=== PATIENT | male | born 1985 | race Hispanic/Latino ===

== ENCOUNTER 2022-07-30 15:38 | Inpatient (IN) | payer OTHER ==
[~2022-07-30] VITALS: Ht 177.8 cm; Wt 68.0 kg
[2022-07-30 16:22] LABS: BASOPHILS % (AUTO) 0.2 % (0.0-5.0); HEMATOCRIT 54.8 % (42-54); LYMPHOCYTES % (AUTO) 8.1 % (21.0-51.0); MEAN CORPUSCULAR HEMOGLOBIN 30.8 pg (27.0-33.0); MEAN CORPUSCULAR HGB CONC 34.9 g/dL (32.0-36.0); MEAN CORPUSCULAR VOLUME 88.2 fL (79-99); MONOCYTES % (AUTO) 9.2 % (3.0-13.0); PLATELET COUNT (AUTO) 280 K/uL (130-400); RED BLOOD CELL COUNT(AUTO) 6.21 MIL/uL (4.50-6.20); RED CELL DISTRIBUTION WIDTH 14.2 % (11.0-15.5); WHITE BLOOD COUNT (AUTO) 20.1 K/uL (4.8-10.8)
[2022-07-30 16:47] LABS: ALBUMIN 6.5 g/dL (3.5-5.0); CREATININE 7.2 mg/dL (0.5-1.5); POTASSIUM 3.7 mmol/L (3.5-5.1); TOTAL PROTEIN, SERUM 12.6 g/dL (6.0-8.3)
[2022-07-30] MEDS ORDERED: LEVOFLOXACIN 500 MG/D5W 100 ML 100 ML IV SCH (17:00)
[2022-07-30] MEDS ORDERED: 0.9%NACL 1000ML 1,000 ML IV ONE (17:00)
[2022-07-30] MEDS ORDERED: 0.9%NACL 1000ML 2,190 ML IV SCH (17:00)
[2022-07-30] MEDS ORDERED: 0.9%NACL 1000ML 1,000 ML IV SCH (18:30)
[2022-07-30] MEDS ORDERED: NITROGLYCERIN 0.4 MG SL TAB SL PRN (18:30)
[2022-07-30 18:32] LABS: INR 1.01 (0.85-1.15)
[2022-07-30 18:33] LABS: PARTIAL THROMBOPLASTIN TIME 32.9 SEC (26.3-35.5)
[2022-07-30 18:38] LABS: HEMOGLOBIN A1C 4.9 % (4.0-6.0)
[2022-07-30] MEDS ORDERED: ASPIRIN 81MG CHEW TAB PO SCH (18:54)
[2022-07-30 19:41] LABS: THYROID STIMULATING HORMONE 1.94 uIU/mL (0.36-3.74)
[2022-07-30 20:13] VITALS: BP 114/86
[2022-07-31] MEDS ORDERED: LEVOFLOXACIN 250 MG/D5W 50ML 50 ML IVPB SCH (09:00)
[2022-07-31] MEDS ORDERED: ASPIRIN 81MG CHEW TAB PO SCH (09:00)
== END 2022-07-30 20:59 | disposition left against medical advice (07) | DRG 872 ==
LOC: EDH 15:38 → EDHIP 15:39
PROVIDERS: ADMIT Internal Medicine; ATTEND Internal Medicine
DX: A41.9 Sepsis, unspecified organism (principal); N17.9 Acute kidney failure, unspecified; E87.1 Hypo-osmolality and hyponatremia; T67.09XA Other heatstroke and sunstroke, initial encounter; M62.82 Rhabdomyolysis; E86.0 Dehydration; F17.210 Nicotine dependence, cigarettes, uncomplicated; F20.9 Schizophrenia, unspecified; E86.1 Hypovolemia; W18.39XA Other fall on same level, initial encounter; E83.52 Hypercalcemia; X58.XXXA Exposure to other specified factors, initial encounter; Y93.89 Activity, other specified; Y92.89 Other specified places as the place of occurrence of the external cause; Y99.8 Other external cause status
CPT/HCPCS: 36415; 70450; 71045; 74176; 80053; 80305; 82550; 83036; 83605; 83690; 84443; 84484; 85025; 85610; 85730; 87040; 93005; 99291; G0378; J1956; J7030